=== PATIENT | female | born 1950 | race Caucasian/White ===

== ENCOUNTER 2022-05-30 18:34 | Inpatient (IN) | payer OTHER ==
[2022-05-30] MEDS ORDERED: methylPREDNISolone NA SUCC 125 MG/2 ML VIAL IVPB ONE (18:53)
[2022-05-30] MEDS ORDERED: ALBUTEROL SO4 2.5/IPRATROPIUM 0.5 INH SOL 3 ML VIAL.NEB. NEB ONE (18:53)
[2022-05-30] MEDS ORDERED: VANCOMYCIN 1 GM in D5W (PRE-DOCKED) 1,000 MG/250 ML IVPB ONE (19:01)
[2022-05-30] MEDS ORDERED: PIPERACILLIN/TAZOB 3.375 GM 3.375 GM in DEXTROSE 5%-WATER - 50 ML IVPB ONE (19:02)
[2022-05-30] MEDS ORDERED: PIPERACILLIN/TAZOB 3.375 GM 3.375 GM/50 ML BAG IVPB ONE (19:30)
[2022-05-30 19:51] LABS: BASO % 0.6 % (0-2.0); EOS % 1.6 % (0-4.5); HEMATOCRIT 36.8 % (32.4-45.2); HEMOGLOBIN 11.5 GM/dL (10.7-15.3); MCH 26.7 pg (25.7-33.7); MCHC 31.2 g/dl (32.0-36.0); MEAN CELL VOLUME 85.5 fl (80-96); MEAN PLT VOLUME 8.1 fl (7.5-11.1); MONO % 5.6 % (3.8-10.2); NEUT % 88.2 % (42.8-82.8); PLATELET COUNT 279 10^3/uL (134-434); RDW 18.1 % (11.6-15.6); VENOUS BASE EXCESS 11.5 mmol/L (-2-2); WHITE BLOOD COUNT 7.5 K/mm3 (4.0-10.0)
[2022-05-30 19:54] LABS: VENOUS PH 7.177 (7.310-7.410)
[2022-05-30 19:55] LABS: VENOUS PCO2 122.2 mmHg (38-52)
[2022-05-30 19:59] LABS: INR 1.06 (0.83-1.09); PROTHROMBIN TIME (PATIENT) 12.2 SEC (9.7-13.0)
[2022-05-30 20:02] LABS: ACTIVATED PTT 30.9 SECONDS (25.2-36.5)
[2022-05-30 20:06] LABS: CHLORIDE 97 mmol/L (98-107); SODIUM 142 mmol/L (136-145)
[2022-05-30 20:08] LABS: ANION GAP 2 MMOL/L (8-16); BLOOD UREA NITROGEN 17.9 mg/dL (7-18); CALCIUM 8.4 mg/dL (8.5-10.1); CO2 43 mmol/L (21-32); GLUCOSE,RANDOM 112 mg/dL (74-106)
[2022-05-30 20:11] LABS: CREATININE 0.6 mg/dL (0.55-1.3); SGOT/AST 12 U/L (15-37); SGPT/ALT 12 U/L (13-61)
[2022-05-30 20:13] LABS: BILIRUBIN,TOTAL 0.7 mg/dL (0.2-1); TOT PROT 6.8 g/dl (6.4-8.2)
[2022-05-30 20:14] LABS: ALK PHOS 99 U/L (45-117)
[2022-05-30 20:16] LABS: N-TERMINAL BNP 2654.7 pg/ml (5-125)
[2022-05-30 21:54] LABS: VENOUS BASE EXCESS 7.5 mmol/L (-2-2); VENOUS O2 SATURATION 58.3 % (70-80); VENOUS PH 7.256 (7.310-7.410)
[2022-05-30 21:58] LABS: VENOUS PCO2 83.2 mmHg (38-52)
[2022-05-30] MEDS ORDERED: VANCOMYCIN 1 GRAM (PRE-DOCKED) 1,000 MG/250 ML BAG IVPB ONE (23:43)
[2022-05-31 03:02] LABS: VENOUS BASE EXCESS 8.1 mmol/L (-2-2); VENOUS O2 SATURATION 58.8 % (70-80); VENOUS PH 7.252 (7.310-7.410)
[2022-05-31 03:05] LABS: VENOUS PCO2 88.7 mmHg (38-52)
[2022-05-31] MEDS ORDERED: ALBUTEROL SO4 2.5/IPRATROPIUM 0.5 INH SOL 3 ML VIAL.NEB. NEB PRN (03:07)
[2022-05-31 10:03] LABS: HEMATOCRIT 34.1 % (32.4-45.2); HEMOGLOBIN 10.8 GM/dL (10.7-15.3); MCH 26.8 pg (25.7-33.7); MCHC 31.6 g/dl (32.0-36.0); MEAN CELL VOLUME 84.9 fl (80-96); MEAN PLT VOLUME 8.3 fl (7.5-11.1); PLATELET COUNT 252 10^3/uL (134-434); RBC 4.01 M/mm3 (3.60-5.2); RDW 17.7 % (11.6-15.6); WHITE BLOOD COUNT 5.4 K/mm3 (4.0-10.0)
[2022-05-31 10:16] LABS: ALBUMIN 2.9 g/dl (3.4-5.0); BLOOD UREA NITROGEN 20.4 mg/dL (7-18); CALCIUM 8.5 mg/dL (8.5-10.1)
[2022-05-31 10:19] LABS: CREATININE 0.7 mg/dL (0.55-1.3)
[2022-05-31 10:21] LABS: TOT PROT 6.5 g/dl (6.4-8.2)
[2022-05-31 10:25] LABS: BILIRUBIN,TOTAL 0.8 mg/dL (0.2-1)
[2022-05-31] MEDS ORDERED: ENOXAPARIN NA (PORCINE) 40 MG/0.4 ML DISP.SYRIN SQ ONE (10:39)
[2022-05-31] MEDS ORDERED: methylPREDNISolone NA SUCC 40 MG/1 ML VIAL ONE (10:39)
[2022-05-31] MEDS ORDERED: FUROSEMIDE 40 MG/4 ML INJECTABLE VIAL ONE (10:39)
[2022-05-31] MEDS: ENOXAPARIN NA (PORCINE) 40 MG/0.4 ML DISP.SYRIN SQ SCH (11:03)
[2022-05-31] MEDS: FUROSEMIDE 40 MG/4 ML INJECTABLE VIAL IVPUSH SCH (11:03)
[2022-05-31] MEDS: methylPREDNISolone NA SUCC 40 MG/1 ML VIAL IVPUSH SCH ×2 (11:04→18:53)
[2022-05-31 11:17] LABS: ANISOCYTOSIS 0; MACROCYTOSIS 0
[2022-05-31] MEDS: CEFTRIAXONE 1 GM in DEXTROSE 5%-WATER - 50 ML IVPB SCH (13:45)
[2022-05-31 16:41] VITALS: BMI 70.4
[2022-05-31 17:36] LABS: EPI CELLS 6 /uL (0-25.1); HYALINE CASTS 1 /uL (0-3.1); URINE APPEARANCE TURBID; URINE BACTERIA 82 /uL (0-1359); URINE BILIRUBIN 2+ (NEGATIVE); URINE COLOR RED; URINE GLUCOSE (UA) NEGATIVE (NEGATIVE); URINE KETONE NEGATIVE (NEGATIVE); URINE LEUK ESTERASE 3+ (NEGATIVE); URINE NITRITE NEGATIVE (NEGATIVE); URINE PROTEIN 3+ (NEGATIVE); URINE WBC 5496 /uL (0-25.8)
[2022-05-31 20:22] LABS: URINE RBC 13684.1 /uL (0-23.9); YEAST NONE SEEN (NEGATIVE)
[2022-06-01] MEDS: methylPREDNISolone NA SUCC 40 MG/1 ML VIAL IVPUSH SCH ×3 (02:01→17:16)
[2022-06-01] MEDS ORDERED: cefTRIAXone SODIUM 1 GM VIAL ONE (08:17)
[2022-06-01] MEDS ORDERED: DEXTROSE 5%-WATER - 50 ML IVPB ONE (08:17)
[2022-06-01] MEDS: CEFTRIAXONE 1 GM in DEXTROSE 5%-WATER - 50 ML IVPB SCH (10:07)
[2022-06-01] MEDS: ENOXAPARIN NA (PORCINE) 40 MG/0.4 ML DISP.SYRIN SQ SCH (10:08)
[2022-06-01] MEDS: FUROSEMIDE 40 MG/4 ML INJECTABLE VIAL IVPUSH SCH (10:08)
[2022-06-01] MEDS: VANCOMYCIN 1 GRAM (PRE-DOCKED) 1,000 MG/250 ML BAG IVPB SCH ×2 (12:15→23:08)
[2022-06-02] MEDS: methylPREDNISolone NA SUCC 40 MG/1 ML VIAL IVPUSH SCH ×3 (02:09→17:59)
[2022-06-02 07:49] LABS: HEMOGLOBIN 10.5 GM/dL (10.7-15.3); RBC 3.94 M/mm3 (3.60-5.2); WHITE BLOOD COUNT 4.9 K/mm3 (4.0-10.0)
[2022-06-02 07:50] LABS: HEMATOCRIT 33.2 % (32.4-45.2); MCH 26.6 pg (25.7-33.7); MCHC 31.6 g/dl (32.0-36.0); MEAN CELL VOLUME 84.2 fl (80-96); MEAN PLT VOLUME 8.3 fl (7.5-11.1); PLATELET COUNT 243 10^3/uL (134-434); RDW 18.2 % (11.6-15.6)
[2022-06-02 08:18] LABS: BLOOD UREA NITROGEN 25.8 mg/dL (7-18)
[2022-06-02 08:21] LABS: CREATININE 0.7 mg/dL (0.55-1.3)
[2022-06-02 08:22] LABS: BILIRUBIN,TOTAL 0.5 mg/dL (0.2-1); TOT PROT 6.6 g/dl (6.4-8.2)
[2022-06-02] MEDS ORDERED: cefTRIAXone SODIUM 1 GM VIAL ONE (10:08)
[2022-06-02] MEDS ORDERED: DEXTROSE 5%-WATER - 50 ML IVPB ONE (10:08)
[2022-06-02 10:12] LABS: ANISOCYTOSIS 0; HELMET CELLS 0; HOWELL-JOLLY BODIES 0; MACROCYTOSIS 0; OVALOCYTE 0; ROULEAU 0; SICKELED CELLS 0; TARGET CELLS 0; TEAR DROP CELLS 0; TOXIC GRANULATION 0
[2022-06-02] MEDS: CEFTRIAXONE 1 GM in DEXTROSE 5%-WATER - 50 ML IVPB SCH (10:34)
[2022-06-02] MEDS: FUROSEMIDE 40 MG/4 ML INJECTABLE VIAL IVPUSH SCH (10:34)
[2022-06-02] MEDS: ENOXAPARIN NA (PORCINE) 40 MG/0.4 ML DISP.SYRIN SQ SCH (10:34)
[2022-06-02] MEDS: VANCOMYCIN 1 GRAM (PRE-DOCKED) 1,000 MG/250 ML BAG IVPB SCH (12:25)
[2022-06-02] MEDS: CARVEDILOL 3.125 MG TABLET (FP) PO SCH (21:57)
[2022-06-03] MEDS: VANCOMYCIN 1 GRAM (PRE-DOCKED) 1,000 MG/250 ML BAG IVPB SCH (00:11)
[2022-06-03] MEDS: methylPREDNISolone NA SUCC 40 MG/1 ML VIAL IVPUSH SCH ×3 (01:59→20:00)
[2022-06-03] MEDS ORDERED: cefTRIAXone SODIUM 1 GM VIAL ONE (09:16)
[2022-06-03] MEDS ORDERED: DEXTROSE 5%-WATER - 50 ML IVPB ONE (09:17)
[2022-06-03] MEDS: ENOXAPARIN NA (PORCINE) 40 MG/0.4 ML DISP.SYRIN SQ SCH (09:59)
[2022-06-03] MEDS: FUROSEMIDE 40 MG/4 ML INJECTABLE VIAL IVPUSH SCH (09:59)
[2022-06-03] MEDS: CEFTRIAXONE 1 GM in DEXTROSE 5%-WATER - 50 ML IVPB SCH (09:59)
[2022-06-03] MEDS: LETROZOLE 2.5 MG TABLET (FP) PO SCH (10:02)
[2022-06-03] MEDS: CARVEDILOL 3.125 MG TABLET (FP) PO SCH ×2 (10:03→21:46)
[2022-06-03 10:31] LABS: HEMATOCRIT 34.2 % (32.4-45.2); HEMOGLOBIN 10.6 GM/dL (10.7-15.3); MCH 26.4 pg (25.7-33.7); MEAN CELL VOLUME 85.1 fl (80-96); MEAN PLT VOLUME 8.2 fl (7.5-11.1); PLATELET COUNT 262 10^3/uL (134-434); RBC 4.02 M/mm3 (3.60-5.2); RDW 17.7 % (11.6-15.6); WHITE BLOOD COUNT 6.6 K/mm3 (4.0-10.0)
[2022-06-03 11:00] LABS: CHLORIDE 93 mmol/L (98-107); SODIUM 142 mmol/L (136-145)
[2022-06-03 11:03] LABS: BLOOD UREA NITROGEN 27.2 mg/dL (7-18); CALCIUM 8.5 mg/dL (8.5-10.1); GLUCOSE,RANDOM 115 mg/dL (74-106)
[2022-06-03 11:07] LABS: SGOT/AST 7 U/L (15-37); SGPT/ALT 14 U/L (13-61)
[2022-06-03 11:08] LABS: BILIRUBIN,TOTAL 0.5 mg/dL (0.2-1); CREATININE 0.7 mg/dL (0.55-1.3); TOT PROT 6.3 g/dl (6.4-8.2)
[2022-06-03 11:11] LABS: ALK PHOS 76 U/L (45-117)
[2022-06-03 11:13] LABS: ANION GAP 4 MMOL/L (8-16); CO2 > 45 mmol/L (21-32)
[2022-06-03 11:21] LABS: ANISOCYTOSIS 3+; MACROCYTOSIS 0
[2022-06-03] MEDS: TIOTROPIUM BROMIDE 2.5 MCG (SPIRIVA) RESPIMAT INHALER IH SCH (13:27)
[2022-06-03] MEDS: ALBUTEROL SO4 0.083% IH SOL 2.5 MG/3 ML VIAL.NEB. NEB SCH ×2 (14:57→20:35)
[2022-06-04] MEDS: methylPREDNISolone NA SUCC 40 MG/1 ML VIAL IVPUSH SCH ×2 (02:26→10:38)
[2022-06-04 07:30] LABS: HEMATOCRIT 35.2 % (32.4-45.2); HEMOGLOBIN 11.1 GM/dL (10.7-15.3); MCH 26.5 pg (25.7-33.7); MCHC 31.4 g/dl (32.0-36.0); MEAN CELL VOLUME 84.4 fl (80-96); MEAN PLT VOLUME 8.4 fl (7.5-11.1); PLATELET COUNT 253 10^3/uL (134-434); RBC 4.17 M/mm3 (3.60-5.2); RDW 17.8 % (11.6-15.6); WHITE BLOOD COUNT 5.7 K/mm3 (4.0-10.0)
[2022-06-04 07:53] LABS: CHLORIDE 90 mmol/L (98-107); SODIUM 140 mmol/L (136-145)
[2022-06-04] MEDS: ALBUTEROL SO4 0.083% IH SOL 2.5 MG/3 ML VIAL.NEB. NEB SCH (08:05)
[2022-06-04 08:19] LABS: CALCIUM 8.9 mg/dL (8.5-10.1)
[2022-06-04 08:21] LABS: BLOOD UREA NITROGEN 29.2 mg/dL (7-18); GLUCOSE,RANDOM 120 mg/dL (74-106)
[2022-06-04 08:22] LABS: CREATININE 0.7 mg/dL (0.55-1.3)
[2022-06-04 08:23] LABS: SGOT/AST 9 U/L (15-37); SGPT/ALT 15 U/L (13-61)
[2022-06-04 08:25] LABS: BILIRUBIN,TOTAL 0.4 mg/dL (0.2-1); TOT PROT 6.3 g/dl (6.4-8.2)
[2022-06-04 08:26] LABS: ALK PHOS 72 U/L (45-117)
[2022-06-04 09:01] LABS: ANION GAP 5 MMOL/L (8-16); CO2 > 45 mmol/L (21-32)
[2022-06-04 09:23] LABS: ANISOCYTOSIS 0; HELMET CELLS 0; HOWELL-JOLLY BODIES 0; MACROCYTOSIS 0; OVALOCYTE 0; ROULEAU 0; SICKELED CELLS 0; TARGET CELLS 0; TEAR DROP CELLS 0; TOXIC GRANULATION 0
[2022-06-04] MEDS ORDERED: DEXTROSE 5%-WATER - 50 ML IVPB ONE (10:02)
[2022-06-04] MEDS ORDERED: cefTRIAXone SODIUM 1 GM VIAL ONE (10:02)
[2022-06-04] MEDS: CEFTRIAXONE 1 GM in DEXTROSE 5%-WATER - 50 ML IVPB SCH (10:37)
[2022-06-04] MEDS ORDERED: HEPARIN NA (PORCINE) 5,000 UNITS/ML 1ML VIAL IVPUSH PRN ×4 (10:37→16:20)
[2022-06-04] MEDS: LETROZOLE 2.5 MG TABLET (FP) PO SCH (10:37)
[2022-06-04] MEDS: CARVEDILOL 3.125 MG TABLET (FP) PO SCH ×2 (10:37→21:53)
[2022-06-04] MEDS: TIOTROPIUM BROMIDE 2.5 MCG (SPIRIVA) RESPIMAT INHALER IH SCH (10:38)
[2022-06-04] MEDS: ENOXAPARIN NA (PORCINE) 40 MG/0.4 ML DISP.SYRIN SQ SCH (10:38)
[2022-06-04] MEDS: FUROSEMIDE 40 MG/4 ML INJECTABLE VIAL IVPUSH SCH (10:38)
[2022-06-04] MEDS ORDERED: HEPARIN SOD,PORK IN 0.45% NACL 25,000 UNITS/500 ML INFUS.BAG IVPB SCH (10:45)
[2022-06-04] MEDS: HEPARIN SOD,PORK IN 0.45% NACL 25,000 UNITS/500 ML INFUS.BAG IVPB SCH (16:30)
[2022-06-04] MEDS: MINERAL OIL/PET HY-PHL TOPICAL OINTMENT 454 GM JAR TP SCH ×2 (21:52→22:06)
[2022-06-04] MEDS: ATORVASTATIN CA 10 MG TABLET (FP) PO SCH (21:53)
[2022-06-05] MEDS ORDERED: predniSONE 20 MG TABLET (UD) PO SCH (10:00)
[2022-06-05] MEDS ORDERED: FUROSEMIDE 40 MG/4 ML INJECTABLE VIAL IVPUSH SCH (10:00)
[2022-06-05] MEDS ORDERED: cefTRIAXone SODIUM 1 GM VIAL ONE (11:00)
[2022-06-05] MEDS ORDERED: DEXTROSE 5%-WATER - 50 ML IVPB ONE (11:00)
[2022-06-05] MEDS: CEFTRIAXONE 1 GM in DEXTROSE 5%-WATER - 50 ML IVPB SCH (11:26)
[2022-06-05] MEDS: predniSONE 20 MG TABLET (UD) PO SCH (11:26)
[2022-06-05] MEDS: CARVEDILOL 3.125 MG TABLET (FP) PO SCH ×2 (11:27→21:51)
[2022-06-05] MEDS: LETROZOLE 2.5 MG TABLET (FP) PO SCH (11:28)
[2022-06-05] MEDS: MINERAL OIL/PET HY-PHL TOPICAL OINTMENT 454 GM JAR TP SCH ×2 (11:57→21:51)
[2022-06-05] MEDS: TIOTROPIUM BROMIDE 2.5 MCG (SPIRIVA) RESPIMAT INHALER IH SCH (11:57)
[2022-06-05] MEDS: HEPARIN SOD,PORK IN 0.45% NACL 25,000 UNITS/500 ML INFUS.BAG IVPB SCH (20:34)
[2022-06-05] MEDS: ATORVASTATIN CA 10 MG TABLET (FP) PO SCH ×2 (21:51→21:54)
[2022-06-06 09:19] LABS: HEMATOCRIT 35.2 % (32.4-45.2); MCH 26.3 pg (25.7-33.7); MCHC 31.2 g/dl (32.0-36.0); MEAN CELL VOLUME 84.4 fl (80-96); PLATELET COUNT 239 10^3/uL (134-434); RBC 4.17 M/mm3 (3.60-5.2)
[2022-06-06] MEDS: predniSONE 20 MG TABLET (UD) PO SCH (11:10)
[2022-06-06] MEDS: CARVEDILOL 3.125 MG TABLET (FP) PO SCH ×2 (11:10→21:34)
[2022-06-06] MEDS: LETROZOLE 2.5 MG TABLET (FP) PO SCH (11:21)
[2022-06-06] MEDS: FUROSEMIDE 40 MG TABLET (FP) PO SCH (11:22)
[2022-06-06] MEDS: MINERAL OIL/PET HY-PHL TOPICAL OINTMENT 454 GM JAR TP SCH ×2 (11:22→21:34)
[2022-06-06] MEDS: TIOTROPIUM BROMIDE 2.5 MCG (SPIRIVA) RESPIMAT INHALER IH SCH (11:23)
[2022-06-06] MEDS: CEFTRIAXONE 1 GM in DEXTROSE 5%-WATER - 50 ML IVPB SCH (11:51)
[2022-06-06] MEDS ORDERED: traMADol HCL 50 MG TABLET PO PRN (15:44)
[2022-06-06] MEDS: HEPARIN SOD,PORK IN 0.45% NACL 25,000 UNITS/500 ML INFUS.BAG IVPB SCH (17:22)
[2022-06-06] MEDS: AMOX TR/POT CLAV 875MG/125MG TABLETS (FP) PO SCH (17:22)
[2022-06-06] MEDS: ATORVASTATIN CA 10 MG TABLET (FP) PO SCH (21:35)
[2022-06-07 07:36] VITALS: BP 121/75; PULSE 86; TEMP 97.5
[2022-06-07] MEDS: AMOX TR/POT CLAV 875MG/125MG TABLETS (FP) PO SCH (09:10)
[2022-06-07 10:14] LABS: HEMATOCRIT 36.4 % (32.4-45.2); HEMOGLOBIN 11.5 GM/dL (10.7-15.3); MCH 26.4 pg (25.7-33.7); MCHC 31.6 g/dl (32.0-36.0); MEAN CELL VOLUME 83.8 fl (80-96); MEAN PLT VOLUME 8.3 fl (7.5-11.1); PLATELET COUNT 246 10^3/uL (134-434); RBC 4.35 M/mm3 (3.60-5.2); RDW 17.9 % (11.6-15.6); WHITE BLOOD COUNT 8.6 K/mm3 (4.0-10.0)
[2022-06-07] MEDS: FUROSEMIDE 40 MG TABLET (FP) PO SCH (10:44)
[2022-06-07] MEDS: MINERAL OIL/PET HY-PHL TOPICAL OINTMENT 454 GM JAR TP SCH (10:44)
[2022-06-07] MEDS: TIOTROPIUM BROMIDE 2.5 MCG (SPIRIVA) RESPIMAT INHALER IH SCH (10:44)
[2022-06-07] MEDS: predniSONE 20 MG TABLET (UD) PO SCH (10:44)
[2022-06-07] MEDS: LETROZOLE 2.5 MG TABLET (FP) PO SCH (10:44)
[2022-06-07] MEDS: CARVEDILOL 3.125 MG TABLET (FP) PO SCH (10:44)
== END 2022-06-07 14:43 | DRG 189 ==
LOC: JER 18:34 → JERBED 23:08 → J4W 05-31 15:12 → J8W 06-04 15:52
PROVIDERS: ADMIT Internal Medicine; ATTEND Internal Medicine
DX: J96.21 Acute and chronic respiratory failure with hypoxia (principal); E66.2 Morbid (severe) obesity with alveolar hypoventilation; Z68.45 Body mass index [BMI] 70 or greater, adult; J44.1 Chronic obstructive pulmonary disease with (acute) exacerbation; E87.3 Alkalosis; E87.2 Acidosis; R78.81 Bacteremia; J98.11 Atelectasis; L97.828 Non-pressure chronic ulcer of other part of left lower leg with other specified severity; L97.818 Non-pressure chronic ulcer of other part of right lower leg with other specified severity; E78.5 Hyperlipidemia, unspecified; D64.9 Anemia, unspecified; I11.0 Hypertensive heart disease with heart failure; I50.9 Heart failure, unspecified; J96.22 Acute and chronic respiratory failure with hypercapnia
CPT/HCPCS: 0241U-QW; 36415; 71045-TC-FY; 80053; 80061; 81003; 82550; 82553; 82803; 82962; 83036; 83605; 83880; 84443; 84484; 85025; 85027; 85610; 85730; 86850; 86900; 86901; 87040; 87081; 87086; 87186; 93005; 93010; 93306-TC; 94640; 94660; 97161-GP; 99291; C9803-CS; E1399; G0480; U0003; U0005

== ENCOUNTER 2024-08-16 21:44 | Inpatient (IN) | payer OTHER ==
[2024-08-16 21:58] VITALS: BMI 53.5
[2024-08-17 01:35] LABS: BASO % 2.5 % (0-2.0); EOS % 1.2 % (0-4.5); HEMATOCRIT 24.8 % (32.4-45.2); HEMOGLOBIN 7.5 GM/dL (10.7-15.3); LYMPH % 1.4 % (8-40); MCH 22.3 pg (25.7-33.7); MCHC 30.3 g/dl (32.0-36.0); MEAN CELL VOLUME 73.7 fl (80-96); MEAN PLT VOLUME 7.7 fl (7.5-11.1); MONO % 7.8 % (3.8-10.2); NEUT % 87.1 % (42.8-82.8); PLATELET COUNT 277 10^3/uL (134-434); RBC 3.37 M/mm3 (3.60-5.2); RDW 27.5 % (11.6-15.6); WHITE BLOOD COUNT 8.8 K/mm3 (4.0-10.0)
[2024-08-17 01:40] LABS: VENOUS BASE EXCESS 7.8 mmol/L (-2-2); VENOUS O2 SATURATION 90.1 % (70-80); VENOUS PCO2 64.4 mmHg (38-52); VENOUS PH 7.345 (7.310-7.410)
[2024-08-17 01:42] LABS: INR 1.12 (0.83-1.09); PROTHROMBIN TIME (PATIENT) 12.6 SEC (9.7-13.0)
[2024-08-17 01:44] LABS: ACTIVATED PTT 20.8 SECONDS (25.2-36.5)
[2024-08-17 01:58] LABS: ALBUMIN 2.3 g/dl (3.4-5.0); BLOOD UREA NITROGEN 52.6 mg/dL (7-18); CALCIUM 8.2 mg/dL (8.5-10.1)
[2024-08-17 02:01] LABS: CREATININE 2.2 mg/dL (0.55-1.3)
[2024-08-17 02:04] LABS: BILIRUBIN,TOTAL 0.8 mg/dL (0.2-1); TOT PROT 6.1 g/dl (6.4-8.2)
[2024-08-17] MEDS: oxyCODONE HCL 5 MG TABLET PO ONE ×3 (02:38→09:15)
[2024-08-17] MEDS ORDERED: oxyCODONE HCL 5 MG TABLET ONE ×2 (02:40→09:19)
[2024-08-17 03:05] LABS: ANISOCYTOSIS 1+; HOWELL-JOLLY BODIES 2+; MACROCYTOSIS 0; OVALOCYTE 1+
[2024-08-17 07:39] LABS: HEMATOCRIT 24.5 % (32.4-45.2); HEMOGLOBIN 7.5 GM/dL (10.7-15.3); MCH 22.6 pg (25.7-33.7); MCHC 30.5 g/dl (32.0-36.0); MEAN CELL VOLUME 74.3 fl (80-96); MEAN PLT VOLUME 7.5 fl (7.5-11.1); PLATELET COUNT 255 10^3/uL (134-434); RBC 3.29 M/mm3 (3.60-5.2); RDW 27.4 % (11.6-15.6)
[2024-08-17 07:59] LABS: POTASSIUM 5.5 mmol/L (3.5-5.1)
[2024-08-17 08:08] LABS: ALBUMIN 2.2 g/dl (3.4-5.0); BLOOD UREA NITROGEN 50.6 mg/dL (7-18); CALCIUM 8.1 mg/dL (8.5-10.1)
[2024-08-17 08:09] LABS: CREATININE 2.4 mg/dL (0.55-1.3)
[2024-08-17 08:13] LABS: TOT PROT 5.9 g/dl (6.4-8.2)
[2024-08-17] MEDS ORDERED: SODIUM ZIRCONIUM CYCLOSILICATE (LOKELMA) 5 GM PACKET ONE (10:59)
[2024-08-17] MEDS: SODIUM ZIRCONIUM CYCLOSILICATE (LOKELMA) 5 GM PACKET PO ONE (11:03)
[2024-08-17] MEDS: NYSTATIN 100,000 UNIT/GM TOPICAL CREAM 15 GM TUBE TP SCH (11:04)
[2024-08-17] MEDS ORDERED: traMADol HCL 50 MG TABLET PO PRN (16:00)
[2024-08-17] MEDS: LACTATED RINGERS SOLUTION 1,000 ML/1,000 ML INFUS.BAG IV SCH (20:06)
[2024-08-17] MEDS: CARVEDILOL 3.125 MG TABLET (FP) PO SCH (22:51)
[2024-08-17] MEDS ORDERED: ATORVASTATIN CA 10 MG TABLET (FP) ONE (23:02)
[2024-08-17] MEDS: ATORVASTATIN CA 10 MG TABLET (FP) PO SCH (23:08)
[2024-08-18] MEDS ORDERED: oxyCODONE HCL 5 MG TABLET ONE ×2 (01:27→09:02)
[2024-08-18] MEDS: oxyCODONE HCL 5 MG TABLET PO PRN (01:30)
[2024-08-18 07:21] LABS: HEMATOCRIT 22.8 % (32.4-45.2); MCH 22.3 pg (25.7-33.7); MEAN CELL VOLUME 74.2 fl (80-96); MEAN PLT VOLUME 7.6 fl (7.5-11.1); PLATELET COUNT 253 10^3/uL (134-434); RBC 3.07 M/mm3 (3.60-5.2); RDW 27.6 % (11.6-15.6); WHITE BLOOD COUNT 6.1 K/mm3 (4.0-10.0)
[2024-08-18 07:28] LABS: HEMOGLOBIN 6.8 GM/dL (10.7-15.3)
[2024-08-18 07:37] LABS: POTASSIUM 4.8 mmol/L (3.5-5.1)
[2024-08-18 07:40] LABS: CALCIUM 7.7 mg/dL (8.5-10.1)
[2024-08-18 07:41] LABS: BLOOD UREA NITROGEN 49.9 mg/dL (7-18); MAGNESIUM 2.1 mg/dL (1.8-2.4)
[2024-08-18 07:44] LABS: CREATININE 2.4 mg/dL (0.55-1.3); PHOSPHOROUS 4.2 mg/dL (2.5-4.9)
[2024-08-18] MEDS ORDERED: CARVEDILOL 3.125 MG TABLET (FP) ONE (09:01)
[2024-08-18] MEDS: TIOTROPIUM BROMIDE 2.5 MCG (SPIRIVA) RESPIMAT INHALER IH SCH (10:38)
[2024-08-18] MEDS: LETROZOLE 2.5 MG TABLET (FP) PO SCH (14:19)
[2024-08-19 12:54] LABS: BASO % 0.5 % (0-2.0); EOS % 1.2 % (0-4.5); HEMOGLOBIN 8.7 GM/dL (10.7-15.3); LYMPH % 2.3 % (8-40); MCH 22.9 pg (25.7-33.7); MCHC 29.9 g/dl (32.0-36.0); MEAN CELL VOLUME 76.6 fl (80-96); MEAN PLT VOLUME 7.6 fl (7.5-11.1); MONO % 10.1 % (3.8-10.2); NEUT % 85.9 % (42.8-82.8); PLATELET COUNT 282 10^3/uL (134-434); RBC 3.78 M/mm3 (3.60-5.2); RDW 27.1 % (11.6-15.6); WHITE BLOOD COUNT 6.6 K/mm3 (4.0-10.0)
[2024-08-19] MEDS ORDERED: oxyCODONE HCL 5 MG TABLET ONE (14:32)
[2024-08-20 02:36] VITALS: RESP 18
[2024-08-20] MEDS ORDERED: oxyCODONE HCL 5 MG TABLET ONE (03:20)
[2024-08-20 10:26] VITALS: BP 101/52; PULSE 88; TEMP 98
== END 2024-08-20 15:06 | disposition home health service (06) | DRG 699 ==
LOC: JER 21:44 → JERBED 08-17 04:20
PROVIDERS: ADMIT Student in an Organized Health Care Education/Training Program; ATTEND Internal Medicine
PROC: 30233N1 Transfusion of Nonautologous Red Blood Cells into Peripheral Vein, Percutaneous Approach (ICD-10-PCS; 2024-08-18)
PROC: 0T9030Z Drainage of Right Kidney with Drainage Device, Percutaneous Approach (ICD-10-PCS; principal; 2024-08-19)
PROC: 0T25X0Z Change Drainage Device in Kidney, External Approach (ICD-10-PCS; 2024-08-19)
DX: T83.022A Displacement of nephrostomy catheter, initial encounter (principal); Z68.43 Body mass index [BMI] 50.0-59.9, adult; J44.9 Chronic obstructive pulmonary disease, unspecified; G47.33 Obstructive sleep apnea (adult) (pediatric); E78.5 Hyperlipidemia, unspecified; E11.9 Type 2 diabetes mellitus without complications; I11.0 Hypertensive heart disease with heart failure; I50.9 Heart failure, unspecified; E66.01 Morbid (severe) obesity due to excess calories; D64.9 Anemia, unspecified; C54.1 Malignant neoplasm of endometrium; Y83.8 Other surgical procedures as the cause of abnormal reaction of the patient, or of later complication, without mention of misadventure at the time of the procedure
CPT/HCPCS: 36415; 36430; 50435; 76775-TC; 80048; 80053; 82728; 82746; 82803; 83540; 83550; 83735; 84100; 84443; 85025; 85027; 85045; 85610; 85730; 86850; 86900; 86901; 86922; 94660; 99285-25; P9038; P9058